=== PATIENT | female | born 1975 | race Caucasian/White ===

== ENCOUNTER 2023-08-26 15:19 | Outpatient (CLI) | payer OTHER ==
[2023-08-26 16:22] LABS: CREATININE SERUM 0.61 mg/dL (0.55-1.02)
== END 2023-08-26 15:27 | disposition home or self-care (01) ==
LOC: LAB 15:19
PROVIDERS: ATTEND Radiology Diagnostic Radiology
DX: R42 Dizziness and giddiness (principal)

== ENCOUNTER 2023-08-27 09:56 | Outpatient (CLI) | payer OTHER | END 2023-08-27 10:03 | disposition home or self-care (01) | LOC: TOM 09:56 | DX: H81.4 Vertigo of central origin (principal) ==

== ENCOUNTER 2023-09-25 09:02 | Outpatient (CLI) | payer OTHER | END 2023-09-25 09:03 | disposition home or self-care (01) | LOC: NUCLEAR 09:02 | PROVIDERS: ATTEND Internal Medicine | DX: I67.9 Cerebrovascular disease, unspecified (principal); I65.29 Occlusion and stenosis of unspecified carotid artery ==